=== PATIENT | female | born 1985 | race Caucasian/White ===

== ENCOUNTER → 2023-04-25 | Outpatient (CLI) | payer OTHER ==
[2023-04-25 10:24] LABS: ALBUMIN 4.5 GM/DL (3.2-4.5); BILIRUBIN,TOTAL 0.5 MG/DL (0.1-1.0); CALCIUM 9.2 MG/DL (8.5-10.1); CREATININE SERUM 0.85 MG/DL (0.60-1.30); POTASSIUM 4.1 MMOL/L (3.6-5.0); TOTAL PROTEIN 7.5 GM/DL (6.4-8.2)
[2023-04-25 21:40] LABS: CHOLESTEROL 203 MG/DL (< 200); HDL CHOLESTEROL 43 MG/DL (40-60); TRIGLYCERIDES 127 MG/DL (<150); VLDL CHOLESTEROL 25 MG/DL (5-40)
== END ==
LOC: LAB FS 10:12
PROVIDERS: ATTEND Family Medicine
DX: Z01.419 Encounter for gynecological examination (general) (routine) without abnormal findings (principal); I10 Essential (primary) hypertension; F90.0 Attention-deficit hyperactivity disorder, predominantly inattentive type; Z80.3 Family history of malignant neoplasm of breast
CPT/HCPCS: 36415; 80053; 80061